=== PATIENT | female | born 1975 | race American Indian/Alaskan Native ===

== ENCOUNTER 2017-07-21 23:14 | Emergency (ER) | payer OTHER ==
[2017-07-21 23:24] VITALS: BP 136/83; PULSE 97; RESP 20; TEMP 98; O2SAT 97
[2017-07-22] MEDS ORDERED: Peg-Electrolyte Oral Soln 4L (Golytely) PO ONE (00:12)
--- NOTE | 2017-07-22 00:50 | C.PDOC ---
History Of Present Illness 41 year old female who presents to the ER with a complaint of constipation for the past 2-3 days. Patient is status post fibroid removal and is currently taking Tylenol with Codeine for the pain. Patient states she tried and enema and miralax with no relief to symptoms. Denies abdominal pain or vomiting. Time Seen by Provider: 07/21/17 23:22 Chief Complaint (Nursing): Abdominal Pain History Per: Patient History/Exam Limitations: no limitations Onset/Duration Of Symptoms: Days Current Symptoms Are (Timing): Still Present Associated Symptoms: Constipation. denies: Vomiting Exacerbating Factors: None Alleviating Factors: None Last Bowel Movement: Yesterday Abnormal Vaginal Bleeding: No Past Medical History Reviewed: Historical Data, Nursing Documentation, Vital Signs Vital Signs: Last Vital Signs Temp 98.0 F 07/21/17 23:20 Pulse 97 H 07/21/17 23:20 Resp 20 07/22/17 01:09 BP 136/83 07/21/17 23:20 Pulse Ox 97 07/22/17 01:38 - Medical History PMH: No Chronic Diseases Other Surgeries: Fibroid removal Family History: States: Unknown Family Hx - Social History Hx Alcohol Use: No Hx Substance Use: No Review Of Systems Gastrointestinal: Positive for: Constipation. Negative for: Vomiting, Abdominal Pain Genitourinary: Negative for: Dysuria, Hematuria Musculoskeletal: Negative for: Back Pain Physical Exam - Physical Exam Appears: Non-toxic, No Acute Distress Skin: Normal Color, Warm, Dry Head: Atraumatic, Normacephalic Eye(s): bilateral: Normal Inspection, PERRL, EOMI Oral Mucosa: Moist Neck: Normal ROM Chest: Symmetrical Cardiovascular: Rhythm Regular, No Friction Rub, No Murmur Respiratory: Normal Breath Sounds, No Rales, No Rhonchi, No Wheezing Gastrointestinal/Abdominal: Bowel Sounds (active), Soft, No Tenderness Back: Normal Inspection, No CVA Tenderness Extremity: Normal ROM, No Swelling Neurological/Psych: Oriented x3, Normal Speech, Normal Cognition ED Course And Treatment O2 Sat by Pulse Oximetry: 97 (Room air) Pulse Ox Interpretation: Normal - Other Rad Obstructive Series X-Ray: Interpreted by Me, Viewed By Me Interpretation: Positive constipation. No free air, no obstruction. Medical Decision Making Medical Decision Making: Plan: * Obstructive Series * Golytely * Motrin Patient had large bowel movement in ED. On re-exam, the patient reports improvement of symptoms. Lungs are CTA, heart is RRR, ambulatory in the ED with steady gait. abdomen is soft, non-tender and tolerating PO well. Follow up with the medical doctor within 1-2 days. Return if worsened. Disposition - Disposition Referrals: Andrea Rodriguez MD [Staff Provider] - Disposition: HOME/ ROUTINE Disposition Time: 00:47 Condition: GOOD Additional Instructions: Follow up with the medical doctor within 1-2 days. Return if worsened. Prescriptions: Docusate Sodium [Colace] 100 mg PO DAILY #30 capsule Ibuprofen [Motrin] 600 mg PO TID #21 tab Instructions: Constipation (DC), High Fiber Diet (ED) Forms: [employer] (Turkish) - Clinical Impression Clinical Impression: Constipation - Scribe Statement The provider has reviewed the documentation as recorded by the Scribe Cristopher Recinos All medical record entries made by the Scribe were at my direction and personally dictated by me. I have reviewed the chart and agree that the record accurately reflects my personal performance of the history, physical exam, medical decision making, and the department course for this patient. I have also personally directed, reviewed, and agree with the discharge instructions and disposition.
--- NOTE | 2017-07-22 10:24 | RAD ---
PROCEDURE: Radiographs of the chest and abdomen (obstructive series) HISTORY: constipation COMPARISON: No prior. TECHNIQUE: AP radiograph of the chest, with upright and supine radiographs of the abdomen. FINDINGS: CHEST: Lungs: Clear. Cardiovascular: Normal size heart. No pulmonary vascular congestion. Pleura: No pleural fluid. No pneumothorax. Other findings: None. ABDOMEN AND PELVIS: Bowel: Nuak-me-eifbsgbo constipation. Otherwise unremarkable bowel gas pattern. . No evidence of mechanical obstruction. Free air: None. Bones: Unremarkable. Other findings: None. IMPRESSION: Wqch-zh-[id number] constipation. Otherwise unremarkable radiographs of chest and abdomen. No evidence of mechanical bowel obstruction.
== END 2017-07-22 01:09 | disposition home or self-care (01) ==
LOC: C.ER 23:14
DX: K59.00 Constipation, unspecified (principal)

== ENCOUNTER 2017-07-22 16:35 | Emergency (ER) | payer OTHER ==
--- NOTE | 2017-07-22 18:20 | C.PDOC ---
History Of Present Illness 41 year old female presents to the ED complaining of constipation. Patient was seen in the ED on 07/21/2017 for the same symptoms, X-Rays were taken, medications were prescribed from the symptoms. Patient states not taking all of her medications accompanied with the passage of some hard stool. She also reports minimal blood present on the tissue paper after last BM. Patient denies nausea, vomit, fever, or change in appetite. Chief Complaint (Nursing): Abdominal Pain History Per: Patient History/Exam Limitations: no limitations Onset/Duration Of Symptoms: Hrs Current Symptoms Are (Timing): Still Present Radiation Of Pain To:: None Associated Symptoms: Constipation. denies: Fever, Chills, Nausea, Vomiting, Diarrhea, Loss Of Appetite, Urinary Symptoms Last Bowel Movement: Yesterday (some hard stool) Recent travel outside of the [place]: No Additional History Per: Patient Past Medical History Reviewed: Historical Data, Nursing Documentation, Vital Signs Vital Signs: Last Vital Signs Temp 99.7 F H 07/22/17 22:09 Pulse 90 07/22/17 22:09 Resp 20 07/22/17 22:09 BP 134/84 07/22/17 22:09 Pulse Ox 100 07/22/17 22:09 - Medical History PMH: No Chronic Diseases Surgical History: No Surg Hx Family History: States: Unknown Family Hx - Social History Hx Alcohol Use: No Hx Substance Use: No Review Of Systems Constitutional: Negative for: Fever, Chills, Weight loss Gastrointestinal: Positive for: Constipation, Hematemesis (minimal). Negative for: Nausea, Vomiting, Diarrhea Genitourinary: Negative for: Dysuria, Hematuria Physical Exam - Physical Exam Appears: Non-toxic, No Acute Distress Skin: Normal Color, Warm, Dry Head: Atraumatic, Normacephalic Oral Mucosa: Moist Neck: Normal, Supple Gastrointestinal/Abdominal: Soft, No Tenderness, No Rebound Back: Normal Inspection Extremity: Normal ROM Neurological/Psych: Oriented x3, Normal Speech, Normal Cognition ED Course And Treatment - Laboratory Results Result Diagrams: 07/22/17 18:48 07/22/17 18:48 O2 Sat by Pulse Oximetry: 95 (On RA) Pulse Ox Interpretation: Normal - Other Rad Obstructive X-Ray series X-Ray: Interpreted by Me, Viewed By Me Interpretation: FINDINGS: CHEST: Lungs: Clear. Cardiovascular: Normal size heart. No pulmonary vascular congestion. Pleura: No pleural fluid. No pneumothorax. Other findings: None. ABDOMEN AND PELVIS: Bowel: Unremarkable bowel gas pattern. No evidence of mechanical obstruction. Free air: None. Bones: Unremarkable. Other findings: None. IMPRESSION: Unremarkable radiographs of chest and abdomen. Interval resolving of the previously seen mild -to-moderate constipation. No evidence of mechanical bowel obstruction. Medical Decision Making Medical Decision Making: Impression : 41 y/o presents with constipation symptoms similar to what she was seen on ED on 07/21/2017. Plan : * Obstructive series X-Ray ordered Disposition - Disposition Referrals: Lonely Sock Katy Morocho, [Non-Staff] - Disposition: HOME/ ROUTINE Disposition Time: 21:45 Condition: GOOD Additional Instructions: Thank you for letting us take care of you today. Your provider was Dr. Madrid. You were treated for constipation. The emergency medical care you received today was directed at your acute symptoms. If you were prescribed any medication, please fill it and take as directed. It may take several days for your symptoms to resolve. Return to the Emergency Department if your symptoms worsen, do not improve, or if you have any other problems. Please contact your doctor or call one of the physicians/clinics you have been referred to that are listed on the Patient Visit Information form that is included in your discharge packet. Bring any paperwork you were given at discharge with you along with any medications you are taking to your follow up visit. Our treatment cannot replace ongoing medical care by a primary care provider (PCP) outside of the emergency department. Thank you for allowing the [facility] team to be part of your care today. Follow up with your doctor in 2-3 days for re-evaluation and further management. Prescriptions: Sod Phos,M-B/Na Phos,Di-Ba [Fleet Enema] 133 ml RC Q8 PRN #4 enema PRN Reason: Constipation Instructions: Constipation (ED) Forms: [employer] (Ukrainian) - Clinical Impression Clinical Impression: Constipation - Scribe Statement The provider has reviewed the documentation as recorded by the Scribe Ti Murray All medical record entries made by the Scribe were at my direction and personally dictated by me. I have reviewed the chart and agree that the record accurately reflects my personal performance of the history, physical exam, medical decision making, and the department course for this patient. I have also personally directed, reviewed, and agree with the discharge instructions and disposition.
[2017-07-22] MEDS ORDERED: Iohexol 240 (50 ml) PO ONE (18:33)
[2017-07-22] MEDS ORDERED: Iohexol 240 (50 ml) ONE (18:51)
[2017-07-22 18:52] LABS: BASO % 0.2 % (0.0-2.0); EOS % 0.2 % (0.0-4.0); HEMATOCRIT 26.4 % (34.0-47.0); LYMPH # 0.5 K/uL (1.0-4.3); LYMPH % 5.5 % (20.0-40.0); MEAN CELL VOLUME 72.2 fL (81.0-99.0); MEAN CORPUSCULAR HEMOGLOBIN 22.1 pg (27.0-31.0); MEAN CORPUSCULAR HGB CONC 30.6 g/dL (33.0-37.0); MEAN PLATELET VOLUME 9.3 fL (7.2-11.7); MONO # 0.5 K/uL (0.0-0.8); PLATELET COUNT 260 K/uL (130-400); RED CELL DISTRIBUTION WIDTH 21.5 % (11.5-14.5); WHITE BLOOD COUNT 8.6 K/uL (4.8-10.8)
--- NOTE | 2017-07-22 18:54 | RAD ---
PROCEDURE: Radiographs of the chest and abdomen (obstructive series) HISTORY: r/o obstruction - comparsion to x-ray yesterday COMPARISON: Comparison is made to the previous study dated 07/21/2017 TECHNIQUE: AP radiograph of the chest, with upright and supine radiographs of the abdomen. FINDINGS: CHEST: Lungs: Clear. Cardiovascular: Normal size heart. No pulmonary vascular congestion. Pleura: No pleural fluid. No pneumothorax. Other findings: None. ABDOMEN AND PELVIS: Bowel: Unremarkable bowel gas pattern. No evidence of mechanical obstruction. Free air: None. Bones: Unremarkable. Other findings: None. IMPRESSION: Unremarkable radiographs of chest and abdomen. Interval resolving of the previously seen [id number] constipation. No evidence of mechanical bowel obstruction.
[2017-07-22 18:59] LABS: CHLORIDE 100 mmol/L (98-107); POTASSIUM 3.5 mmol/L (3.6-5.2); SODIUM 136 mmol/L (132-148)
[2017-07-22 19:02] LABS: ALB/GLOB RATIO 1.1 (1.0-2.1); ALKALINE PHOSPHATASE 104 U/L (38-126); ALT/SGPT 115 U/L (9-52); AST/SGOT 88 U/L (14-36); BILIRUBIN,TOTAL 0.8 mg/dL (0.2-1.3); BLOOD UREA NITROGEN 8 mg/dL (7-17); CALCIUM 9.4 mg/dl (8.6-10.4); CARBON DIOXIDE 27 mmol/L (22-30); GFR AFRICAN-AMERICAN > 60; GLUCOSE,RANDOM 96 mg/dL (65-105); TOTAL PROTEIN 7.7 g/dL (6.3-8.3)
[2017-07-22] MEDS ORDERED: Iodixanol 320 MG/ML 100 ML BOTTLE IV ONE (19:22)
[2017-07-22 19:28] LABS: EOSINOPHIL 1 % (0-4); LARGE PLATELETS PRESENT; NEUTROPHIL 93 % (50-75); TOTAL CELLS COUNTED 100
--- NOTE | 2017-07-22 21:40 | CT ---
EXAM: CT Abdomen and Pelvis With Intravenous Contrast CLINICAL HISTORY: 41 years old, female; Pain; Abdominal pain; Generalized; Additional info: R/O obstruction TECHNIQUE: Axial computed tomography images of the abdomen and pelvis with intravenous contrast. All CT scans at this facility use one or more dose reduction techniques, viz.: automated exposure control; ma/kV adjustment per patient size (including targeted exams where dose is matched to indication; i.e. head); or iterative reconstruction technique. Coronal and sagittal reformatted images were created and reviewed. CONTRAST: 100 mL of visipaque 320 administered intravenously. COMPARISON: No relevant prior studies available. FINDINGS: Lower thorax: Mild cardiomegaly. 0.4 cm RIGHT upper lobe nodule. ABDOMEN: Liver: Unremarkable. No mass. Gallbladder and bile ducts: No calcified stones. No ductal dilation. Pancreas: No ductal dilation. No mass. Spleen: No splenomegaly. Adrenals: No mass. Kidneys and ureters: No mass. No hydronephrosis. Stomach and bowel: Moderate amount of stool within colon. Moderate mural thickening of distal rectum. Minimal stranding within adjacent fat. No obstruction. Appendix: Normal caliber. No inflammation. PELVIS: Bladder: Unremarkable. Reproductive: Enlarged, heterogeneous, slightly lobulated uterus. Small calcifications about RIGHT adnexa. ABDOMEN and PELVIS: Intraperitoneal space: No significant fluid collection. No free air. Bones/joints: Degenerative changes of lower lumbar spine. No acute fracture. Soft tissues: Tiny umbilical hernia containing fat. Vasculature: Unremarkable. No aneurysm. Lymph nodes: No pathologically enlarged lymph nodes. IMPRESSION: 1. Rectal wall thickening. Clinical correlation is needed. 2. Probable fibroid uterus. 3. Pulmonary nodules. For low-risk patients, no follow-up is necessary. For high-risk patients (smoking history or other known risk factors) an optional CT at 12 months could be performed. 4. Incidental/non-acute findings are described above.
[2017-07-22 22:10] VITALS: BP 134/84; PULSE 90; RESP 20; TEMP 99.7
[2017-07-22 23:25] VITALS: O2SAT 95
== END 2017-07-22 22:13 | disposition home or self-care (01) ==
LOC: C.ER 16:35
DX: K59.00 Constipation, unspecified (principal)
CPT/HCPCS: 74022; 74177; 80053; 83690; 85025; 99285; Q9966; Q9967